=== PATIENT | female | born 1980 | race Caucasian/White ===

== ENCOUNTER 2020-09-06 18:05 | Outpatient (CLI) | payer MEDICAID | END 2020-09-06 23:59 | disposition home or self-care (01) | LOC: D.MAMMO 18:05 | PROVIDERS: ATTEND Obstetrics & Gynecology | DX: Z12.31 Encounter for screening mammogram for malignant neoplasm of breast (principal); Z01.419 Encounter for gynecological examination (general) (routine) without abnormal findings ==